=== PATIENT | female | born 1990 | race African-American/Black ===

== ENCOUNTER 2018-03-30 14:33 | Emergency (ER) | payer MEDICAID, OTHER ==
[~2018-03-30] VITALS: Ht 157.5 cm; Wt 72.6 kg
[~2018-03-30 14:33] MED LIST: DENIES HOME MEDS
[2018-03-30 15:02] VITALS: BP 121/77
[2018-03-30 15:47] LABS: Urine Bacteria NONE SEEN /hpf (None Seen); Urine Blood Negative /uL (Negative); Urine Mucus FEW (None Seen); Urine Specific Gravity 1.025 (1.001-1.035); Urine WBC 11 /hpf (0 - 5)
== END 2018-03-30 16:42 | disposition home or self-care (01) ==
LOC: ER 14:33
DX: N76.0 Acute vaginitis (principal); N39.0 Urinary tract infection, site not specified
CPT/HCPCS: 81001